=== PATIENT | female | born 1990 | race Caucasian/White ===

== ENCOUNTER 2018-01-02 10:20 | Emergency (ER) | payer OTHER ==
[2018-01-02 10:29] VITALS: BMI 27.3
[2018-01-02] MEDS ORDERED: DEXAMETHASONE SOD PHOSPHATE 10 MG/1 ML VIAL IVPUSH ONE (10:57)
[2018-01-02] MEDS ORDERED: ONDANSETRON 4 MG/2 ML VIAL IVPUSH ONE (10:57)
[2018-01-02] MEDS ORDERED: KETOROLAC TROMETHAMINE 30 MG/1 ML VIAL IVPUSH ONE ×2 (10:57→18:16)
--- NOTE | 2018-01-02 10:57 | PDOC ---
History of Present Illness - General Chief Complaint: Headache Stated Complaint: MIGRAINE Time Seen by Provider: 01/02/18 10:31 History Source: Patient Exam Limitations: No Limitations - History of Present Illness Initial Comments: CHIEF COMPLAINT: 27 y/o female with history of migraine headaches c/o intractable migraine on right side of head x 1 week. HISTORY OF PRESENT ILLNESS: The patient sees Dr. Hameed and is only preventative migraine treatment but she had trouble refilling her prescription because of an insurance issue and hasn't taken her preventative medication in a few weeks. She developed a migraine 1 week ago with nausea and can't break it. She denies fever, v/d, CP, auras, numbness/tingling, head trauma. Neurologist is Dr. Hameed Vital signs on arrival are within normal limits. REVIEW OF SYSTEMS: GENERAL/CONSTITUTIONAL: No fever/chills. No weakness. No weight change. HEAD, EYES, EARS, NOSE AND THROAT: No change in vision. No ear pain or discharge. No sore throat. CARDIOVASCULAR: No chest pain or shortness of breath. RESPIRATORY: No cough, wheezing, or hemoptysis. GASTROINTESTINAL: +nausea. No vomiting or diarrhea. GENITOURINARY: No dysuria, frequency, or change in urination. MUSCULOSKELETAL: No joint or muscle swelling or pain. No neck or back pain. SKIN: No rash or easy bruising. NEUROLOGIC: +migraine headache. No vertigo, loss of consciousness, or loss of sensation. PHYSICAL EXAM: GENERAL: The patient is awake, alert, and fully oriented, in no acute distress. HEAD: Normal with no signs of trauma. ENT: Pupils equal, round and reactive to light, extraocular movements intact, sclera anicteric, conjunctiva clear. No photophobia. No nystagmus. LUNGS: Clear to auscultation bilaterally. Normal excursion. No respiratory distress or use of accessory muscles. CV: RRR, S1/S2, no MRG. Cap refill < 2 sec. ABDOMEN: Soft, non-distended, non-tender even to deep palpation, no hepatomegaly or splenomegaly, no masses. EXTREMITIES: Normal range of motion, no edema. NEUROLOGICAL: Normal speech, normal gait. CN II-XII grossly intact. SKIN: Warm, dry, normal turgor, no rashes or lesions noted. Past History - Past Medical History Allergies/Adverse Reactions: Allergies Allergy/AdvReac Type Severity Reaction Status Date / Time No Known Allergies Allergy Verified 01/02/18 10:29 Home Medications: Ambulatory Orders Alprazolam [Xanax] 2 mg PO TID #0 tablet 11/27/11 Lubiprostone [Amitiza] 24 mcg PO BID #0 capsule 11/27/11 Zolpidem Tartrate [Ambien] 10 mg PO HS #0 tablet 11/27/11 COPD: No CHF: No - Surgical History Appendectomy: Yes - Immunization History Immunization Up to Date: Yes - Suicide/Smoking/Psychosocial Hx Smoking History: Never smoked Have you smoked in the past 12 months: No Information on smoking cessation initiated: No Hx Alcohol Use: No Drug/Substance Use Hx: No *Physical Exam - Vital Signs Last Vital Signs Temp Pulse Resp BP Pulse Ox 98.1 F 90 20 124/85 99 01/02/18 10:26 01/02/18 10:26 01/02/18 10:26 01/02/18 10:26 01/02/18 10:26 Medical Decision Making - Medical Decision Making A/P: 27 y/o afebrile female with intractable migraine x 1 week. Plan is as follows: 1. hcg 2. IV fluids 3. IV zofran, benadryl, toradol and decadron Patient states she was able to fill her migraine medicine this week and has taken 2 doses but it hasn't helped break this current migraine yet. No improvement after meds and fluids. Gave PO Fioricet Spoke with her neurologist, Dr. Lanza. He suggested Head CT since she hasn't had imaging in a while. 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 patient still feels no change in headache Paged Dr. Lanza again. He reviewed CT scan and does not feel she needs admission. Suggested another PO fioricet and discharge with rx for sumatriptan and ibuprofen He wants to see her in his office on thursday DIscussed this plan with family and with Dr. Barton in main ER. Will transfer to main er for IV mag, PO fioricet and discharge to home. The patient verbalizes understanding of all instructions, has no further questions and is awaiting discharge. *DC/Admit/Observation/Transfer Diagnosis at time of Disposition: Migraine Qualifiers: Migraine type: without aura Status migrainosus presence: without status migrainosus Intractability: intractable Qualified Code(s): G43.019 - Migraine without aura, intractable, without status migrainosus - Discharge Dispostion Condition at time of disposition: Improved - Referrals Referrals: Luis Alberto Huerta MD [Primary Care Provider] - - Patient Instructions Printed Discharge Instructions: DI for Migraine - Post Discharge Activity
[2018-01-02] MEDS ORDERED: SODIUM CHLORIDE 1,000 ML IV STA ×2 (10:58→13:30)
[2018-01-02] MEDS ORDERED: ONDANSETRON 4 MG/2 ML VIAL ONE (11:10)
[2018-01-02] MEDS ORDERED: DEXAMETHASONE SOD PHOSPHATE 10 MG/1 ML VIAL ONE (11:10)
[2018-01-02] MEDS ORDERED: KETOROLAC TROMETHAMINE 30 MG/1 ML VIAL ONE ×2 (11:10→18:20)
[2018-01-02] MEDS ORDERED: ACETAMINOPHEN/CAFFEINE/BUTALBITAL 1 TAB PO ONE ×2 (12:14→16:27)
[2018-01-02] MEDS ORDERED: ACETAMINOPHEN/CAFFEINE/BUTALBITAL 1 TAB ONE ×2 (12:23→16:41)
[2018-01-02] MEDS ORDERED: ACETAMINOPHEN 1000 MG/100 ML VIAL (NON FORMULARY) IVPB ONE (13:30)
[2018-01-02] MEDS ORDERED: ACETAMINOPHEN INJECTION 100 ML IVPB ONE (13:36)
[2018-01-02] MEDS ORDERED: MAGNESIUM SULF 50% (8.12 MEQ/2 ML-1 GM VIAL) IVPB ONE (15:11)
[2018-01-02] MEDS ORDERED: levETIRAcetam 500 MG/5 ML INJECTION VIAL IVPB ONE ×2 (15:11→15:18)
[2018-01-02] MEDS ORDERED: MAGNESIUM 1GM/D5W - 1 GM/100 ML IVPB IVPB ONE (15:18)
--- NOTE | 2018-01-02 15:30 | PDOC ---
*Physical Exam - Vital Signs Last Vital Signs Temp Pulse Resp BP Pulse Ox 98.1 F 90 20 124/85 99 01/02/18 10:26 01/02/18 10:26 01/02/18 10:26 01/02/18 10:26 01/02/18 10:26 - Physical Exam Comments: 01/02/18 16:49 gen: aaox3, sitting up, speaking in full sentences, nontoxic in appearance heent: EOMI, MMM Neck: supple, no meningeal signs, no nucal rigidity heart: +s1s2 reg Lungs: cta b/l abd: soft, nt/nd +bs ext: no c/c/e neuro: cn ii-xii grossly intact, muscle strenght 5/5 ue/LE, sensation intact, normal finger to nose ED Treatment Course - ADDITIONAL ORDERS Additional order review: Laboratory Results 01/02/18 10:50 Urine HCG, Qual Negative - Medications Given in the ED: ED Medications Discontinued Medications Generic Name Dose Route Start Last Admin Trade Name Chayo PRN Reason Stop Dose Admin Acetaminophen 1,000 mg 01/02/18 13:30 01/02/18 13:42 Ofirmev Injection - IVPB 01/02/18 13:31 1,000 mg ONCE ONE Administration Acetaminophen/Butalbital/Caffeine 1 tablet 01/02/18 12:14 01/02/18 12:38 Fioricet - PO 01/02/18 12:15 1 tablet ONCE ONE Administration Dexamethasone Sodium Phosphate 10 mg 01/02/18 10:57 01/02/18 11:18 Decadron Injection - IVPUSH 01/02/18 10:58 10 mg ONCE ONE Administration Diphenhydramine HCl 25 mg 01/02/18 10:57 01/02/18 11:18 Benadryl Injection - IVPUSH 01/02/18 10:58 25 mg ONCE ONE Administration Sodium Chloride 1,000 mls @ 1,000 mls/hr 01/02/18 10:58 01/02/18 11:33 Normal Saline - IV 01/02/18 11:57 1,000 mls/hr ASDIR STA Administration Sodium Chloride 1,000 mls @ 1,000 mls/hr 01/02/18 13:30 01/02/18 13:43 Normal Saline - IV 01/02/18 14:29 1,000 mls/hr ASDIR STA Administration Ketorolac Tromethamine 30 mg 01/02/18 10:57 01/02/18 11:18 Toradol Injection - IVPUSH 01/02/18 10:58 30 mg ONCE ONE Administration Ondansetron HCl 4 mg 01/02/18 10:57 01/02/18 11:33 Zofran Injection IVPUSH 01/02/18 10:58 4 mg ONCE ONE Administration Medical Decision Making - Medical Decision Making 01/02/18 16:50 a/p: 27yo female upgraded from fast track for intractable headache -neuro is Dr. Lanza -Christine spoke multiple times with Dr. Lanza - no narcotics for pain -recommends another fioricet and magnesium -recommends d/c home with sumatriptan and ibuprofen -recommends follow up Thursday with him in the office -pt neuro intact -pt does not want to stay overnight -states she will go thursday to see Dr. Lanza in the office -discussed outpt management of pain -discussed labs and imaging 01/02/18 16:53 will send rx to [facility] 01/02/18 17:04 case discussed again with Dr. Hernandez who recommends adding motrin to her relpax 01/02/18 18:17 pt still crying in pain elevated hr states usually relpax works for her and was out of it all week except for last few days - will dose relpax in the ed and give another dose of toradol 01/02/18 19:07 pt requesting to go home discussed follow up with dr. hernandez discussed all reasons to return to the ED answered all questions discussed medications at home has relpax at home *DC/Admit/Observation/Transfer Diagnosis at time of Disposition: Migraine Qualifiers: Migraine type: without aura Status migrainosus presence: without status migrainosus Intractability: intractable Qualified Code(s): G43.019 - Migraine without aura, intractable, without status migrainosus - Discharge Dispostion Condition at time of disposition: Improved Decision to Admit order: No - Prescriptions Prescriptions: Ibuprofen [Motrin -] 600 mg PO TID PRN #21 tablet PRN Reason: Pain - Referrals Referrals: Luis Alberto Huerta MD [Primary Care Provider] - Marcell Hernandez MD [Staff Physician] - - Patient Instructions Printed Discharge Instructions: DI for Migraine Additional Instructions: Please follow up with Dr. Hernandez on Thursday as discussed. Please also follow up with your PMD this week. Please take all prescribed meds as instructed. Please return to the ED if your symptoms worsen. Please drink plenty of fluids. Please take the motrin with your relpax that you have at home. - Post Discharge Activity
[2018-01-02 17:55] VITALS: TEMP 99
[2018-01-02] MEDS ORDERED: ELETRIPTAN HYDROBROMIDE 40 MG TABLET PO ONE (18:15)
[2018-01-02] MEDS ORDERED: SODIUM CHLORIDE 0.9% 1000 ML INFUS.BAG IV ONE (18:16)
[2018-01-02 18:44] VITALS: BP 136/95; PULSE 101
== END 2018-01-02 19:10 | disposition home or self-care (01) ==
LOC: JERFT 10:20 → JER 10:20
PROC: 3E0337Z Introduction of Electrolytic and Water Balance Substance into Peripheral Vein, Percutaneous Approach (ICD-10-PCS; principal; 2018-01-02)
PROC: 3E033GC Introduction of Other Therapeutic Substance into Peripheral Vein, Percutaneous Approach (ICD-10-PCS; 2018-01-02)
PROC: 3E033GC Introduction of Other Therapeutic Substance into Peripheral Vein, Percutaneous Approach (ICD-10-PCS; 2018-01-02)
PROC: 3E033GC Introduction of Other Therapeutic Substance into Peripheral Vein, Percutaneous Approach (ICD-10-PCS; 2018-01-02)
PROC: 3E033NZ Introduction of Analgesics, Hypnotics, Sedatives into Peripheral Vein, Percutaneous Approach (ICD-10-PCS; 2018-01-02)
PROC: 3E0333Z Introduction of Anti-inflammatory into Peripheral Vein, Percutaneous Approach (ICD-10-PCS; 2018-01-02)
PROC: 3E033NZ Introduction of Analgesics, Hypnotics, Sedatives into Peripheral Vein, Percutaneous Approach (ICD-10-PCS; 2018-01-02)
PROC: 3E033GC Introduction of Other Therapeutic Substance into Peripheral Vein, Percutaneous Approach (ICD-10-PCS; 2018-01-02)
DX: G43.019 Migraine without aura, intractable, without status migrainosus (principal)
CPT/HCPCS: 70450-TC; 84703; 99282-25; J0131; J1100; J7030

== ENCOUNTER 2018-01-03 19:27 | Emergency (ER) | payer OTHER ==
[2018-01-03 19:52] VITALS: TEMP 98.3; BMI 28.3
[2018-01-03] MEDS ORDERED: SODIUM CHLORIDE 0.9% 500 ML INFUS.BAG IV ONE (20:16)
[2018-01-03] MEDS ORDERED: HYDROmorphone HCL CARPU-JECT 2 MG/1 ML DISP.SYRIN IVPUSH ONE (20:16)
[2018-01-03] MEDS ORDERED: HYDROmorphone HCl 2 MG/ML VIAL ONE (20:45)
[2018-01-03] MEDS ORDERED: ACETAMINOPHEN INJECTION 100 ML IVPB ONE (20:46)
[2018-01-03] MEDS ORDERED: ONDANSETRON 4 MG/2 ML VIAL IVPUSH ONE (20:46)
[2018-01-03] MEDS ORDERED: ACETAMINOPHEN 1000 MG/100 ML VIAL (NON FORMULARY) IVPB ONE (20:46)
[2018-01-03] MEDS ORDERED: ONDANSETRON 4 MG/2 ML VIAL ONE (20:46)
--- NOTE | 2018-01-03 20:55 | PDOC ---
History of Present Illness - General Chief Complaint: Migraine Headache Stated Complaint: MIGRAINE Time Seen by Provider: 01/03/18 20:13 History Source: Patient Exam Limitations: No Limitations - History of Present Illness Initial Comments: 01/03/18 20:47 Patient is a 27-year-old female with history of migraine, here with c/o Migraine headaches x 1 week. She was seen in the emergency room yesterday and treated with several meds but had no relief of symptoms. She called her neurologist today and was instructed to come back to the emergency room for further treatment. Neurologist came to see patient in the emergency room recommended Dilaudid 1 dose, IVF. (+) photophobia, (+) nausea, (-) vomiting, PMD: Neuro: Dr. Hernandez ALL: NKDA GENERAL/CONSTITUTIONAL: [No fever or chills. No weakness. No weight change.] HEAD, EYES, EARS, NOSE AND THROAT: [No change in vision. No ear pain or discharge. No sore throat.] CARDIOVASCULAR: [No chest pain or shortness of breath.] RESPIRATORY: [No cough, wheezing, or hemoptysis.] GASTROINTESTINAL: [No nausea, vomiting, diarrhea or constipation. No rectal bleeding.] GENITOURINARY: [No dysuria, frequency, or change in urination.] MUSCULOSKELETAL: [No joint or muscle swelling or pain. No neck or back pain.] SKIN AND BREASTS: [No rash or easy bruising.] NEUROLOGIC: [No headache, vertigo, loss of consciousness, or loss of sensation.] PSYCHIATRIC: [No depression or anxiety.] ENDOCRINE: [No increased thirst. No abnormal weight change.] HEMATOLOGIC/LYMPHATIC: [No anemia, easy bleeding, or history of blood clots.] ALLERGIC/IMMUNOLOGIC: [No hives or skin allergy. No latex allergy.] GENERAL: [The patient is awake, alert, and fully oriented, in mild distress, wearing shade] HEAD: [Normal with no signs of trauma.] EYES: [Pupils equal, round and reactive to light, extraocular movements intact, sclera anicteric, conjunctiva clear.] ENT: [Ears normal, nares patent, oropharynx clear without exudates. Moist mucous membranes.] NECK: [Normal range of motion, supple without lymphadenopathy, JVD, or masses.] LUNGS: [Breath sounds equal, clear to auscultation bilaterally. No wheezes, and no crackles.] HEART: [Regular rate and rhythm, normal S1 and S2 without murmur, rub.] ABDOMEN: [Soft, nontender, normoactive bowel sounds. No guarding, no rebound. No masses.] EXTREMITIES: [Normal range of motion, no edema. No clubbing or cyanosis. No cords, erythema, or tenderness.] NEUROLOGICAL: [Cranial nerves II through XII grossly intact. Normal speech, normal gait.] PSYCH: [Normal mood, normal affect.] SKIN: [Warm, Dry, normal turgor, no rashes or lesions noted.] Past History - Past Medical History Allergies/Adverse Reactions: Allergies Allergy/AdvReac Type Severity Reaction Status Date / Time No Known Allergies Allergy Verified 01/03/18 19:52 Home Medications: Ambulatory Orders Alprazolam [Xanax] 2 mg PO TID #0 tablet 11/27/11 Lubiprostone [Amitiza] 24 mcg PO BID #0 capsule 11/27/11 Zolpidem Tartrate [Ambien] 10 mg PO HS #0 tablet 11/27/11 Ibuprofen [Motrin -] 600 mg PO TID PRN #21 tablet 01/02/18 COPD: No CHF: No Other medical history: migrains - Surgical History Appendectomy: Yes - Immunization History Immunization Up to Date: Yes - Suicide/Smoking/Psychosocial Hx Smoking History: Never smoked Have you smoked in the past 12 months: No Information on smoking cessation initiated: No Hx Alcohol Use: No Drug/Substance Use Hx: No Substance Use Type: None *Physical Exam - Vital Signs Last Vital Signs Temp Pulse Resp BP Pulse Ox 98.3 F 66 18 168/102 H 98 01/03/18 19:49 01/03/18 19:49 01/03/18 19:49 01/03/18 19:49 01/03/18 19:49 ED Treatment Course - Medications Given in the ED: ED Medications Discontinued Medications Generic Name Dose Route Start Last Admin Trade Name Freq PRN Reason Stop Dose Admin Sodium Chloride 1,000 ml 01/03/18 20:16 01/03/18 20:38 Normal Saline - IV 01/03/18 20:17 1,000 ml ONCE ONE Administration Medical Decision Making - Medical Decision Making 01/03/18 20:47 Patient is a 27-year-old female with history of migraine, here with c/o Migraine headaches x 1 week. seen in the ED yesterday for the same treated but did not feel better, return to at the promting of the Neuro. CT head yesterday neg. will give symptomatic treatment Dilauid 1mg IV x 1, Tylenol 1gm IV, IV reasess 2129 c/o feeling itching in the nose most likely from the dilaudid given Benadryl 50mg IV. 2214 Still has pain now 07/07 will give toradol 30mg IV 2300 Patient is improved will discharge I discussed the physical exam findings, ancillary test results and final diagnoses with the patient. I answered all of the patient's questions. The patient was satisfied with the care received and felt comfortable with the discharge plan and treatment plan. The Patient agrees to follow up with the primary care physician within 24-72 hours. *DC/Admit/Observation/Transfer Diagnosis at time of Disposition: Migraine Qualifiers: Migraine type: unspecified Status migrainosus presence: without status migrainosus Intractability: not intractable Qualified Code(s): G43.909 - Migraine, unspecified, not intractable, without status migrainosus - Discharge Dispostion Disposition: HOME Condition at time of disposition: Stable - Referrals Referrals: Luis Alberto Huerta MD [Primary Care Provider] - - Patient Instructions Printed Discharge Instructions: DI for Migraine Additional Instructions: Your Discharge Instructions: You must call primary care physician within 24 hours to arrange follow-up. Return to the Emergency Department with any new, persistent or worsening symptoms, for fever, chills, SOB, dizziness or any other concerning changes that may occur. - Post Discharge Activity Forms/Work/School Notes: Back to Work
[2018-01-03] MEDS ORDERED: KETOROLAC TROMETHAMINE 30 MG/1 ML VIAL ONE (22:15)
[2018-01-03] MEDS ORDERED: KETOROLAC TROMETHAMINE 30 MG/1 ML VIAL IVPUSH ONE (22:17)
[2018-01-03 22:52] VITALS: BP 143/94; PULSE 80
== END 2018-01-03 23:09 | disposition home or self-care (01) ==
LOC: JER 19:27
PROC: 3E033NZ Introduction of Analgesics, Hypnotics, Sedatives into Peripheral Vein, Percutaneous Approach (ICD-10-PCS; principal; 2018-01-03)
PROC: 3E033NZ Introduction of Analgesics, Hypnotics, Sedatives into Peripheral Vein, Percutaneous Approach (ICD-10-PCS; 2018-01-03)
PROC: 3E033GC Introduction of Other Therapeutic Substance into Peripheral Vein, Percutaneous Approach (ICD-10-PCS; 2018-01-03)
PROC: 3E033GC Introduction of Other Therapeutic Substance into Peripheral Vein, Percutaneous Approach (ICD-10-PCS; 2018-01-03)
PROC: 3E0333Z Introduction of Anti-inflammatory into Peripheral Vein, Percutaneous Approach (ICD-10-PCS; 2018-01-03)
DX: G43.909 Migraine, unspecified, not intractable, without status migrainosus (principal)
CPT/HCPCS: 99282-25; J0131